=== PATIENT | female | born 1985 | race Caucasian/White ===

== ENCOUNTER 2020-11-13 07:26 | Day surgery (SDC) | payer OTHER ==
[2020-11-12 10:43] LABS: PLATELET COUNT 202 x10^3mcL (179-408)
[2020-11-12 10:45] LABS: BASOPHIL % 0.9 % (0.2-1.3); RED CELL DISTRIBUTION WIDTH 13.1 % (12.3-17.7)
[2020-11-12 10:48] LABS: rbc morphology (normal/abnorm) NORMAL (NORMAL)
[2020-11-12 10:54] LABS: CALCIUM 9.1 mg/dL (8.5-10.1); CARBON DIOXIDE 24.6 mmol/L (21-32); CHLORIDE SERUM 104 mmol/L (98-107); CREATININE SERUM 0.8 mg/dL (0.6-1.0); GFR1 > 60 mL/min; GLUCOSE SERUM 84 mg/dL (74-106); POTASSIUM SERUM 3.8 mmol/L (3.5-5.1); SODIUM SERUM 139 mmol/L (136-145)
[2020-11-12 11:00] LABS: ALKALINE PHOSPHATASE 88 U/L (46-116); ALT/SGPT 45 U/L (14-59); AST/SGOT 12 U/L (15-37); BILIRUBIN TOTAL 0.61 mg/dL (0.20-1.00); TOTAL PROTEIN, SERUM 8.1 g/dL (6.4-8.2)
[~2020-11-13] VITALS: Ht 162.6 cm; Wt 85.7 kg
[2020-11-13 08:17] VITALS: BP 142/81
[2020-11-13 15:25] VITALS: BP 102/74
== END 2020-11-13 14:30 | disposition home or self-care (01) ==
LOC: DS 07:26 → OR 09:30 → DS 09:30
PROVIDERS: ATTEND Surgery
DX: K42.9 Umbilical hernia without obstruction or gangrene (principal); E66.9 Obesity, unspecified; Z68.34 Body mass index [BMI] 34.0-34.9, adult
CPT/HCPCS: C1781; J0131; J0690; J0694; J1170; J2001; J2250; J2405; J3010; J3490